=== PATIENT | female | born 1980 | race Two or more races ===

== ENCOUNTER 2024-01-25 10:37 | Inpatient (IN) | payer BC ==
[~2024-01-25] VITALS: Ht 167.6 cm; Wt 90.8 kg
[2024-01-25 11:24] LABS: Basophils # (auto) 0.1 10 ^3/uL (0-0.2); Basophils % (auto) 0.8 % (0.0-2.0); Eosinophils # (auto) 0.2 10 ^3/uL (0-0.8); Eosinophils % (auto) 2.6 % (0.0-7.0); Hematocrit 41.2 % (36.0-46.0); Hemoglobin 13.9 g/dL (12.2-16.2); Lymphocytes # (auto) 2.8 10 ^3/uL (0.4-5.4); Lymphocytes % (auto) 39.8 % (10.0-50.0); Mean Corpuscular Hemoglobin 29.2 pg (28.0-32.0); Mean Corpuscular Hgb Conc. 33.7 g/dL (32.0-36.0); Mean Corpuscular Volume 86.5 fL (80.0-100.0); Monocytes # (auto) 0.4 10 ^3/uL (0-1.3); Monocytes % (auto) 5.8 % (0.0-12.0); Neutrophils # (auto) 3.6 10 ^3/uL (1.6-8.6); Red Blood Cells 4.77 10^6/uL (4.0-5.20); Red Cell Distribution Width 14.1 % (11.8-14.3); White Blood Cell 7.1 10^3/uL (4.4-10.8)
[2024-01-25 11:49] LABS: Alanine Aminotransferase 31 U/L (7-40); Albumin 4.1 g/dL (3.2-4.8); Alkaline Phosphatase 79 U/L (46-116); Anion Gap 7 (5-15); Aspartate Aminotransferase 22 U/L (13-40); BUN/Creatinine Ratio 10.7 (10.0-20.0); Bilirubin, Total 0.4 mg/dL (0.2-1.0); Blood Urea Nitrogen 8 mg/dL (9-23); CRP High Sensitivity 0.34 mg/dL (<1.0); Calcium 8.8 mg/dL (8.5-10.1); Carbon Dioxide 23 mmol/L (20-30); Chloride 110 mmol/L (98-107); Creatine Kinase IFCC 128 U/L (34-145); Glucose 105 mg/dL (74-106); Sodium 140 mmol/L (136-145)
[2024-01-25 11:50] LABS: Total Protein 7.2 g/dL (5.7-8.2)
[2024-01-25] MEDS ORDERED: MORPHINE SULFATE INJ 2 MG/ml SYRG IV PRN (12:45)
[2024-01-25] MEDS ORDERED: ONDANSETRON HCL 4 MG/2 ML VIAL IV PRN (12:45)
[2024-01-25] MEDS ORDERED: DOCUSATE SOD 100 MG CAP PO PRN (12:45)
[2024-01-25 12:55] LABS: Erythrocyte Sedimentation Rate 8 mm/hr (0-20)
[2024-01-25] MEDS: ENOXAPARIN SOD 100 MG/1 ML SYRINGE SC ONE (13:07)
[2024-01-25 13:13] LABS: INR 1.02 (0.9-1.15); Prothrombin Time 10.7 sec (9.3-11.8)
[2024-01-25] MEDS: LORazepam 0.5 MG TAB PO ONE (13:37)
[2024-01-25 14:48] VITALS: O2SAT 98
[2024-01-25 20:46] VITALS: BP 151/74; PULSE 84; RESP 14; TEMP 97.1; O2SAT 99
[2024-01-25] MEDS ORDERED: APIXABAN 5 MG TAB PO SCH ×2 (22:00)
== END 2024-01-25 20:53 | disposition left against medical advice (07) | DRG 301 ==
LOC: ER 10:37 → OVERFLOW 13:20
PROVIDERS: ADMIT Nurse Practitioner Family; ATTEND Nurse Practitioner Acute Care
DX: I82.412 Acute embolism and thrombosis of left femoral vein (principal); I82.512 Chronic embolism and thrombosis of left femoral vein; F43.10 Post-traumatic stress disorder, unspecified; E11.9 Type 2 diabetes mellitus without complications; I10 Essential (primary) hypertension; Z79.01 Long term (current) use of anticoagulants; Z98.891 History of uterine scar from previous surgery
CPT/HCPCS: 36415; 80053; 82550; 83605; 84702; 85025; 85610; 85652; 86141; 93971; G0378